=== PATIENT | male | born 1945 | race Caucasian/White ===

== ENCOUNTER 2019-04-22 15:01 | Outpatient (CLI) | payer OTHER | END 2019-04-22 15:17 | disposition home or self-care (01) | LOC: NUCLEAR 15:01 | DX: R60.0 Localized edema (principal) ==

== ENCOUNTER 2020-03-25 12:30 | Outpatient (CLI) | payer OTHER | END 2020-03-25 12:36 | disposition home or self-care (01) | LOC: SONOGRAMA 12:30 | PROVIDERS: ATTEND Pathology Anatomic Pathology & Clinical Pathology | DX: E04.1 Nontoxic single thyroid nodule (principal) ==